=== PATIENT | female | born 1940 | race Caucasian/White ===

== ENCOUNTER → 2017-08-05 | Outpatient (CLI) | payer MEDICARE, MEDICAID ==
[~2017-08-05] MED LIST: DOXYCYCLINE 10100 M1 PO; FLEXERIL PO; LISINOPRIL20 MG PO; LOPID600 MG; NORCO 5-325 TA1 EACH; NORFLEX100 MG; ONDANSETRON HCL4 M2 PO; OXYBUTYNIN 5 MG5 M1; PAXIL20 MG PO; PERCOCET 5-3251 EACH PO
[2017-08-05 08:20] LABS: CREATININE 0.9 mg/dL (0.6-1.3)
== END ==
LOC: M.LAB 07:30 → M.CT 07:53
PROVIDERS: Nurse Practitioner Family
DX: G31.9 Degenerative disease of nervous system, unspecified (principal); F03.90 Unspecified dementia, unspecified severity, without behavioral disturbance, psychotic disturbance, mood disturbance, and anxiety; R41.82 Altered mental status, unspecified; R41.3 Other amnesia

== ENCOUNTER 2018-08-27 16:09 | Inpatient (IN) | payer MEDICARE, MEDICAID ==
[~2018-08-27] VITALS: Ht 162.6 cm; Wt 96.2 kg
[2018-08-27 16:10] VITALS: BP 105/79
[2018-08-27] MEDS ORDERED: LASIX 20 MG TAB20 MG PO (16:20)
[2018-08-27] MEDS ORDERED: PRILOSEC 20 MG20 MG PO (16:20)
[2018-08-27] MEDS ORDERED: KLOR-CON 1010 MEQ PO (16:21)
[2018-08-27] MEDS ORDERED: NAMZARIC 28 MG1 EACH PO (16:22)
[2018-08-27] MEDS ORDERED: LEXAPRO 10 MG T10 M2 PO (16:22)
[2018-08-27] MEDS ORDERED: DEPAKOTE125 MG PO (16:23)
[2018-08-27] MEDS ORDERED: FLONASE 0.05%50 MCG NASAL (16:23)
[2018-08-27] MEDS ORDERED: NEURONTIN 300300 M1 PO (16:24)
[2018-08-27] MEDS ORDERED: VITAMIN D1000 UNI1 PO (16:25)
[2018-08-27] MEDS ORDERED: MIRALAX17 GM PO (16:25)
[2018-08-27] MEDS ORDERED: QUETIAPINE FUM100 MG PO (16:26)
[2018-08-27] MEDS ORDERED: LIPITOR10 MG PO (16:26)
[2018-08-27] MEDS ORDERED: TYLENOL EXTRA500 MG PO (16:27)
[2018-08-27] MEDS ORDERED: TRAMADOL 50 MG50 MG PO (16:27)
[2018-08-27 16:28] LABS: URINE BILIRUBIN NEGATIVE (Negative); URINE BLOOD NEGATIVE (Negative); URINE CLARITY CLEAR; URINE COLOR YELLOW; URINE GLUCOSE-RANDOM NEGATIVE (Negative); URINE KETONES TRACE (Negative); URINE LEUKOCYTES-REFLEX NEGATIVE (Negative); URINE NITRITE-REFLEX NEGATIVE (Negative); URINE PROTEIN TRACE (Negative); URINE SPECIFIC GRAVITY 1.025 (1.005-1.030); URINE UROBILINOGEN 0.2 E.U./dl (0.2-1.0)
[2018-08-27 16:48] LABS: ABSOLUTE BASOPHILS 0.1 thou/uL (0.0-0.2); ABSOLUTE LYMPHOCYTES 2.2 thou/uL (0.8-5.3); ABSOLUTE MONOCYTES 1.5 thou/uL (0.0-1.2); ABSOLUTE NEUTROPHILS 10.4 thou/uL (1.6-8.1); BASOPHILS 0.4 %; HEMATOCRIT 30.1 % (37.0-47.0); HEMOGLOBIN 9.6 gm/dL (12.0-15.0); LYMPHOCYTES 15.5 %; MCH 27.2 pg (26.0-34.0); MCHC 31.9 g/dL (28.0-37.0); MCV 85.3 fL (80.0-100.0); MONOCYTES 10.6 %; MPV 10.1 fl. (7.2-11.1); NUCLEATED RBCS 0 /100WBC; PLATELET COUNT* 236 thou/uL (150-400); POLYS 73.5 %; RBC 3.53 mil/uL (4.20-5.00); RDW-CV 17.6 % (10.5-14.5); WBC 14.1 thou/uL (4.0-11.0)
[2018-08-27 16:54] LABS: INFLUENZA A ANTIGEN None Detected (None Detect); INFLUENZA B ANTIGEN None Detected (None Detect)
[2018-08-27 16:57] LABS: INR 1.1
[2018-08-27 17:08] LABS: CALCIUM 8.2 mg/dL (8.5-10.1); CREATININE 1.6 mg/dL (0.6-1.3); POTASSIUM 4.6 mmol/L (3.5-5.1); TROPONIN-I LEVEL 0.38 ng/mL (<0.06)
[2018-08-27 17:16] LABS: ALBUMIN 2.8 g/dL (3.4-5.0); TOTAL BILIRUBIN 0.2 mg/dL (<0.1-1.0); TOTAL PROTEIN 7.1 g/dL (6.4-8.2)
[2018-08-27 20:58] VITALS: BP 105/66
[2018-08-27 21:30] VITALS: BP 116/96
[2018-08-28] VITALS: BP 122/78
[2018-08-28 03:50] VITALS: BP 145/75
[2018-08-28 08:00] VITALS: BP 112/80
--- NOTE | 2018-08-28 11:11 | EKG ---
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 : 1940 Requested By: Bruno Bahena Order Number: [id number] MD: Rohith Ronquillo Measurements Intervals [place] Rate: 158 P: TN: QRS: -7 QRSD: 59 T: 133 QT: 304 QTc: 493 Interpretive Statements Atrial fibrillation with rapid V-rate Low voltage, precordial leads Minimal ST depression Nonspecific T abnrm, anterolateral leads No previous ECG available for comparison Electronically Signed On 08-28-2018 11:11:28 CDT by Rohith Ronquillo [email or web address] <ELECTRONICALLY SIGNED> By: Rohith Ronquillo MD, [facility] 08/28/18 1111 1625 1625 Rohith Ronquillo MD, [facility] /EPI
[2018-08-28 11:42] VITALS: BP 119/65
--- NOTE | 2018-08-28 13:48 | EKG ---
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 : 1940 Requested By: Chase Arita Order Number: [id number] Triston MD: Rohith Ronquillo Measurements Intervals [place] Rate: 92 P: -29 [place]: 196 QRS: -6 QRSD: 76 T: 47 QT: 414 QTc: 513 Interpretive Statements Sinus rhythm Multiple premature atrial complexex Low voltage, precordial leads Borderline T abnormalities, anterior leads Prolonged QT interval Compared to ECG 08/27/2018 16:25:40 T-wave abnormality now present Prolonged QT interval now present Atrial fibrillation no longer noted Electronically Signed On 08-28-2018 13:48:09 CDT by Rohith Ronquillo [email or web address] <ELECTRONICALLY SIGNED> By: Rohith Ronquillo MD, FACC 08/28/18 1348 1201 1201 Rohith Ronquillo MD, FAC /EPI
[2018-08-28 16:00] VITALS: BP 123/67
--- NOTE | 2018-08-28 17:01 | 2DMMODE ---
[place] [address] 2 D/M-MODE ECHOCARDIOGRAM Name: ANNE-MARIE AHN Room: [address] IN [facility]#: [id number] Admission: 08/27/18 Attend Phys: Chase Arita Discharge: Date of : 40 Date of Service: 08/28/18 1700 Report #: [id number] THIS REPORT FOR: //name// APPROVED REPORT Study performed: 08/28/2018 15:42:59 EXAM: Comprehensive 2D, Doppler, and color-flow Echocardiogram Patient Location: In-Patient Room #: [facility] Status: routine BSA: 2.02 HR: 72 bpm BP: 119/65 mmHg Rhythm: NSR Other Information Study Quality: Good Indications Dyspnea 2D Dimensions IVSd: 10.83 (7-11mm) LVOT Diam: 19.87 (18-24mm) LVDd: 40.86 mm PWd: 9.71 (7-11mm) Ascending Ao: 37.52 (22-36mm) LVDs: 24.71 (25-40mm) Aortic Root: 36.36 mm Volumes Left Atrial Volume (Systole) LA ESV Index: 36.40 mL/m2 Aortic Valve AoV Peak Tin.: 1.41 m/s AO Peak Gr.: 7.90 mmHg LVOT Max P.97 mmHg AO Mean Gr.: 4.31 mmHg LVOT Mean P.10 mmHg LVOT Max V: 1.11 m/s AO V2 VTI: 21.01 cm LVOT Mean V: 0.64 m/s JOHANNA (VTI): 2.91 cm2 LVOT V1 VTI: 19.68 cm Mitral Valve E/A Ratio: 0.83 MV Decel. Time: 341.86 ms MV E Max Tin.: 0.92 m/[place] [address] 2 D/M-MODE ECHOCARDIOGRAM Name: ANNE-MARIE AHN Room: [address] IN ..#: [id number] Admission: 08/27/18 Attend Phys: Chase Arita Discharge: Date of : 40 Date of Service: 08/28/18 1700 Report #: [id number] MV PHT: 99.14 ms MVA (PHT): 2.22 cm2 TDI E/Lateral E': 10.22 E/Medial E': 13.14 Medial E' Tin.: 0.07 m/s Lateral E' Tin.: 0.09 m/s Pulmonary Valve PV Peak Tin.: 0.75 m/s PV Peak Gr.: 2.22 mmHg Tricuspid Valve RAP Estimate: 5.00 mmHg TR Peak Gr.: 23.74 mmHg RVSP: 28.00 mmHg PA Pressure: 28.00 mmHg Left Ventricle The left ventricle is normal size. Regional wall motion abnormalities are noted with distal septal and anteroapical hypo-akinesis. There is normal left ventricular wall thickness. Left ventricular systolic function is moderately decreased. LVEF is 40%. Grade I - abnormal relaxation pattern. Right Ventricle The right ventricle is normal size. The right ventricular systolic function is normal. Atria Left atrium is mildly dilated. The right atrium size is normal. Aortic Valve Mild aortic valve sclerosis. No aortic regurgitation is present. There is no aortic valvular stenosis. Mitral Valve There is mitral annular calcification. There is no mitral valve regurgitation noted. No significant mitral valve stenosis. Tricuspid Valve The tricuspid valve is normal in structure. Mild tricuspid regurgitation. No pulmonary hypertension. Pulmonic Valve The pulmonary valve is normal in structure. Trace [place]mon[place] [address] 2 D/M-MODE ECHOCARDIOGRAM Name: ANNE-MARIE AHN Room: [address] IN [facility]#: [id number] Admission: 08/27/18 Attend Phys: Chase Arita Discharge: Date of : 40 Date of Service: 08/28/18 1700 Report #: [id number] Great Vessels The aortic root is normal in size. IVC is normal in size and collapses >50% with inspiration. Pericardium There is no pericardial effusion. <Conclusion> The left ventricle is normal size. There is normal left ventricular wall thickness. Left ventricular systolic function is moderately decreased. LVEF is 40%. Grade I - abnormal relaxation pattern. The right ventricle is normal size. Left atrium is mildly dilated. Mild aortic valve sclerosis. No aortic regurgitation is present. There is no aortic valvular stenosis. There is mitral annular calcification. There is no mitral valve regurgitation noted. No significant mitral valve stenosis. The tricuspid valve is normal in structure. Mild tricuspid regurgitation. No pulmonary hypertension. IVC is normal in size and collapses >50% with inspiration. There is no pericardial effusion. Regional wall motion abnormalities are noted with distal septal and anteroapical hypo-akinesis. <ELECTRONICALLY SIGNED> By: Rohith Ronquillo MD, FACC 08/28/181699 99 99 Rohith Ronquillo MD, FACC /INF
[2018-08-28 20:00] VITALS: BP 142/72
[2018-08-29] VITALS: BP 111/78
[2018-08-29 04:00] VITALS: BP 157/93
[2018-08-29 05:36] LABS: ABSOLUTE EOSINOPHILS 0.1 thou/uL (0.0-0.7); ABSOLUTE LYMPHOCYTES 2.5 thou/uL (0.8-5.3); ABSOLUTE MONOCYTES 0.9 thou/uL (0.0-1.2); ABSOLUTE NEUTROPHILS 10.4 thou/uL (1.6-8.1); BASOPHILS 0.3 %; EOSINOPHILS 0.5 %; HEMATOCRIT 33.1 % (37.0-47.0); HEMOGLOBIN 10.3 gm/dL (12.0-15.0); LYMPHOCYTES 18.2 %; MCH 27.3 pg (26.0-34.0); MCHC 31.2 g/dL (28.0-37.0); MCV 87.4 fL (80.0-100.0); MONOCYTES 6.3 %; MPV 10.9 fl. (7.2-11.1); NUCLEATED RBCS 2 /100WBC; PLATELET COUNT* 177 thou/uL (150-400); POLYS 74.7 %; RBC 3.79 mil/uL (4.20-5.00); WBC 13.9 thou/uL (4.0-11.0)
[2018-08-29 08:00] VITALS: BP 165/78
[2018-08-29 11:42] VITALS: BP 115/92
[2018-08-29 14:31] LABS: HEMATOCRIT 29.1 % (37.0-47.0); HEMOGLOBIN 9.2 gm/dL (12.0-15.0); MCH 27.1 pg (26.0-34.0); MCHC 31.6 g/dL (28.0-37.0); MCV 85.5 fL (80.0-100.0); MPV 9.9 fl. (7.2-11.1); RBC 3.4 mil/uL (4.20-5.00); RDW-CV 17.9 % (10.5-14.5); WBC 11.6 thou/uL (4.0-11.0)
[2018-08-29 14:48] LABS: CALCIUM 8.1 mg/dL (8.5-10.1); CREATININE 1.5 mg/dL (0.6-1.3); POTASSIUM 4.3 mmol/L (3.5-5.1)
[2018-08-29 15:14] LABS: BE 0.1 mmol/L (-2 to +3); PCO2 45.9 mmHg (35.0-45.0); PO2 121.5 mmHg (75.0-100.0); pH 7.366 (7.340-7.450)
[2018-08-29 17:07] VITALS: BP 120/72
[2018-08-29 19:05] VITALS: BP 141/67
[2018-08-30 00:03] VITALS: BP 90/47
[2018-08-30 04:00] VITALS: BP 123/78
[2018-08-30 05:51] LABS: CALCIUM 8.2 mg/dL (8.5-10.1); CREATININE 1.3 mg/dL (0.6-1.3); POTASSIUM 4.8 mmol/L (3.5-5.1)
[2018-08-30 09:00] VITALS: BP 167/82
[2018-08-30 12:38] VITALS: BP 128/68
[2018-08-30 17:01] VITALS: BP 135/77
[2018-08-30 17:16] LABS: BE -0.1 mmol/L (-2 to +3); PCO2 43.7 mmHg (35.0-45.0); PO2 99.1 mmHg (75.0-100.0); pH 7.378 (7.340-7.450)
[2018-08-30 19:15] VITALS: BP 147/73
[2018-08-31] VITALS (9 sets, daily range): BP systolic 72–139; BP diastolic 36–95
[2018-09-01] VITALS (7 sets, daily range): BP systolic 112–150; BP diastolic 54–76
[2018-09-01 05:13] LABS: HEMATOCRIT 30.1 % (37.0-47.0); HEMOGLOBIN 9.6 gm/dL (12.0-15.0); MCH 27.1 pg (26.0-34.0); MCHC 31.7 g/dL (28.0-37.0); MCV 85.4 fL (80.0-100.0); MPV 10.1 fl. (7.2-11.1); RBC 3.53 mil/uL (4.20-5.00); RDW-CV 17.6 % (10.5-14.5); WBC 11.3 thou/uL (4.0-11.0)
[2018-09-01 05:29] LABS: CALCIUM 8.1 mg/dL (8.5-10.1); CREATININE 1.3 mg/dL (0.6-1.3); MAGNESIUM 2.4 mg/dL (1.8-2.4); POTASSIUM 4.4 mmol/L (3.5-5.1)
[2018-09-02 08:01] VITALS: BP 109/53
[2018-09-02] MEDS ORDERED: IPRAT-ALBUT 0.5-3 ML INH (10:15)
[2018-09-02] MEDS ORDERED: CEFUROXIME500 MG PO (10:15)
[2018-09-02] MEDS ORDERED: PRINIVIL5 MG PO (10:15)
[2018-09-02] MEDS ORDERED: ASPIR 8181 MG PO (10:15)
[2018-09-02] MEDS ORDERED: METOPROLOL SUCC25 M1 PO (10:15)
[2018-09-02] MEDS ORDERED: AZITHROMYCIN 2250 MG PO (10:15)
[2018-09-02] MEDS ORDERED: LANOXIN125 MCG PO (10:17)
[2018-09-02 12:00] VITALS: BP 128/64
[2018-09-02] MEDS ORDERED: IMDUR 30 MG TAB30 M1 PO (12:38)
== END 2018-09-02 12:50 | DRG 871 ==
LOC: M.ERS 16:09 → M.2W 17:48 → M.TBA-ER 17:48 → M.2W 21:30
PROVIDERS: Family Medicine; Internal Medicine; Registered Nurse; ADMIT Internal Medicine
DX: A41.9 Sepsis, unspecified organism (principal); G92 Toxic encephalopathy; J15.6 Pneumonia due to other Gram-negative bacteria; J96.90 Respiratory failure, unspecified, unspecified whether with hypoxia or hypercapnia; N17.9 Acute kidney failure, unspecified; I50.22 Chronic systolic (congestive) heart failure; F03.90 Unspecified dementia, unspecified severity, without behavioral disturbance, psychotic disturbance, mood disturbance, and anxiety; I48.0 Paroxysmal atrial fibrillation; I11.0 Hypertensive heart disease with heart failure; E78.00 Pure hypercholesterolemia, unspecified; R32 Unspecified urinary incontinence; Z99.81 Dependence on supplemental oxygen; Z79.1 Long term (current) use of non-steroidal anti-inflammatories (NSAID); Z88.5 Allergy status to narcotic agent; Z88.8 Allergy status to other drugs, medicaments and biological substances; Z90.710 Acquired absence of both cervix and uterus; Z28.21 Immunization not carried out because of patient refusal